=== PATIENT | male | born 1970 | race Caucasian/White ===

== ENCOUNTER 2017-11-21 16:08 | Emergency (ER) | payer OTHER ==
[2017-11-21 16:18] VITALS: BP 154/95; PULSE 59; TEMP 97; BMI 26.6
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
[2017-11-21 18:07] LABS: URINE APPEARANCE CLEAR; URINE BILIRUBIN NEGATIVE (<2.0 mg/dL); URINE BLOOD NEGATIVE (NEGATIVE); URINE COLOR YELLOW; URINE GLUCOSE (UA) NEGATIVE (NEGATIVE); URINE KETONE NEGATIVE (NEGATIVE); URINE LEUK ESTERASE NEGATIVE (NEGATIVE); URINE NITRITE NEGATIVE (NEGATIVE); URINE PROTEIN NEGATIVE (NEGATIVE); URINE UROBILINOGEN NEGATIVE mg/dL (0.2-1.0)
[2017-11-21] MEDS ORDERED: KETOROLAC TROMETHAMINE 60 MG/2 ML VIAL IM ONE (18:27)
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
[2017-11-21] MEDS ORDERED: KETOROLAC TROMETHAMINE 60 MG/2 ML VIAL ONE (19:42)
--- NOTE | 2017-11-22 13:11 | EKG ---
Test Reason : Blood Pressure : / mmHG Vent. Rate : 058 BPM Atrial Rate : 058 BPM P-R Int : 158 ms QRS Dur : 082 ms QT Int : 444 ms P-R-T Axes : 055 043 049 degrees QTc Int : 435 ms SINUS BRADYCARDIA POSSIBLE LEFT ATRIAL ENLARGEMENT BORDERLINE ECG NO PREVIOUS ECGS AVAILABLE Confirmed by ROSLYN GRIFFIN, BANDAR ([id number]) on 11/22/2017 1:11:13 PM Referred By: Confirmed By:BANDAR MCGOWAN MD
== END 2017-11-21 19:51 | disposition home or self-care (01) ==
LOC: JER 16:08
PROC: 3E0233Z Introduction of Anti-inflammatory into Muscle, Percutaneous Approach (ICD-10-PCS; principal; 2017-11-21)
DX: M54.5 Low back pain (principal); V69.49XA Driver of heavy transport vehicle injured in collision with other motor vehicles in traffic accident, initial encounter; Y92.414 Local residential or business street as the place of occurrence of the external cause; Y99.0 Civilian activity done for income or pay; Y93.89 Activity, other specified; I10 Essential (primary) hypertension
CPT/HCPCS: 72050-TC-FY; 72070-TC-FY; 72100-TC-FY; 81003; 93005; 93010; 99285-25